=== PATIENT | female | born 1945 | race Caucasian/White ===

== ENCOUNTER → 2017-04-23 | Outpatient (CLI) | payer MEDICARE | END | disposition home or self-care (01) | LOC: PCVCCLINIC 13:49 | DX: I65.23 Occlusion and stenosis of bilateral carotid arteries (principal); I35.8 Other nonrheumatic aortic valve disorders; E78.5 Hyperlipidemia, unspecified; Z79.899 Other long term (current) drug therapy | CPT/HCPCS: 93005; 93880; G0463 ==

== ENCOUNTER → 2018-07-13 | Outpatient (CLI) | payer MEDICARE ==
--- NOTE | 2018-07-13 15:55 | PCVCIMAG ---
APPROVED REPORT Indications Stenosis Risk Factors Hyperlipidemia Doppler Spectral Velocity Analysis PSV / EDVPSV / EDV ECA (R) 60 / 9 cm/sECA (L) 77 / 10 cm/s dICA (R) 45 / 18 cm/sdICA (L) 42 / 11 cm/s Adrian (R) 61 / 20 cm/smICA (L) 52 / 17 cm/s pICA (R) 34 / 10 cm/spICA (L) 51 / 15 cm/s Bulb (R) 43 / 12 cm/sBulb (L) 59 / 16 cm/s dCCA (R) 59 / 16 cm/sdCCA (L) 74 / 21 cm/s mCCA (R) 81 / 14 cm/smCCA (L) 81 / 19 cm/s Vert (R) 38 / 10 cm/sVert (L) 41 / 7 cm/s ICA/CCA 0.70 ICA/CCA 0.76 Basic Measurements Blood Pressure: Pulses: Right Left RightLeft Brachial(Sitting) 122/38wmNw196/76mmHgTemporal Real Time B-Mode Imaging Vert. (R)AntegradeVert. (L)Antegrade Findings The right carotid bulb has moderate plaque. The right proximal internal carotid artery shows <40% stenosis. The right common carotid artery shows no significant stenosis. The right external carotid artery shows no significant stenosis. The left carotid bulb has mild plaque. The left proximal internal carotid artery shows no significant stenosis. The left common carotid artery shows no significant stenosis. The left external carotid artery shows no significant stenosis. Conclusion 1. Right internal carotid artery stenosis (less than 40%). 2. Left internal carotid artery plaquing without significant stenosis. 3. Antegrade vertebral flow. Similar to April 2017.
== END | disposition home or self-care (01) ==
LOC: PCVCIMAG 13:01
PROVIDERS: ATTEND Internal Medicine
DX: I65.23 Occlusion and stenosis of bilateral carotid arteries (principal); I35.8 Other nonrheumatic aortic valve disorders; E78.5 Hyperlipidemia, unspecified
CPT/HCPCS: 36415; 80061; 93005; 93880; G0463